=== PATIENT | male | born 1955 | race Hispanic/Latino ===

== ENCOUNTER 2018-11-20 09:12 | Observation (INO) | payer SELFPAY ==
--- NOTE | 2018-11-20 09:43 | RAD REPORT ---
EXAM DESCRIPTION: CT - CTHCSPWOC - 11/20/2018 9:29 am CLINICAL HISTORY: Trauma, head and neck injury. TRAUMA COMPARISON: No comparisons TECHNIQUE: Axial 5 mm thick images of the head were obtained. Axial 2 mm thick images of the cervical spine were obtained with sagittal and coronal reconstruction images generated and reviewed. All CT scans are performed using dose optimization technique as appropriate and may include automated exposure control or mA/KV adjustment according to patient size. FINDINGS: CT HEAD WITHOUT CONTRAST: No acute hemorrhage, hydrocephalus or extra-axial collection is identified.No areas of brain edema or midline shift. The paranasal sinuses and mastoids are clear.The calvarium is intact. Prominent posterior scalp jonathan augusto. CT CERVICAL SPINE WITHOUT CONTRAST: No fracture or subluxation.Mild cervical spondylosis.No prevertebral soft tissues swelling is identif ied. IMPRESSION: No acute intracranial or cervical spine findings.
[2018-11-20 10:04] LABS: Protime INR 0.97
[2018-11-20 10:20] LABS: Absolute Lymphocytes (CBC) 2.3 K/uL (0.7-4.9); Basophils % 0.7 % (0-1.3); Hematocrit 47.3 % (39.6-49.0); Lymphocytes % 22.1 % (15.3-44.8); RBC Red Blood Cell Count 4.96 M/uL (4.33-5.43)
--- NOTE | 2018-11-20 10:20 | ER ---
Nurse's Notes [facility] Name: Matt Reyes Age: 63 yrs Sex: Male : 1955 Arrival Date: 11/20/2018 Time: 09:15 Bed 4 Private MD: Diagnosis: Syncope and collapse Presentation: 11/20 09:16 Presenting complaint: EMS states: FALL OFF LADDER WITH OCCIPITAL INJURY AND +LOC, bp AMNESTIC TO EVENT. Care prior to arrival: IV initiated. 20 GA, in the left antecubital area. Mechanism of Injury: Fall from ladder. Trauma event details: Injury occurred in the [facility], Injury occurred: at home. Injury occurred: November 20, 2018 Injury occurred at: 08:45. 09:16 Acuity: YUNG 3 bp 09:16 Method Of Arrival: EMS: [facility] bp 12:03 Transition of care: patient was not received from another setting of care. Onset of bp symptoms is unknown. Risk Assessment: Do you want to hurt yourself or someone else? Patient reports no desire to harm self or others. Initial Sepsis Screen: Does the patient meet any 2 criteria? No. Patient's initial sepsis screen is negative. Does the patient have a suspected source of infection? No. Patient's initial sepsis screen is negative. Triage Assessment: 09:16 General: Appears in no apparent distress. comfortable, Behavior is appropriate for age. bp 09:16 Pain: Complains of pain in scalp. bp 09:16 EENT: No deficits noted. Neuro: Level of Consciousness is awake, alert, obeys commands, bp Oriented to person, place, time, situation, Appropriate for age. Cardiovascular: No deficits noted. Respiratory: No deficits noted. GI: No signs and/or symptoms were reported involving the gastrointestinal system. : No signs and/or symptoms were reported regarding the genitourinary system. Derm: No deficits noted. Musculoskeletal: No deficits noted. Trauma Activation: Consult Physician: ED Physician; Name: KAREN; Notified At: 09:16; Arrived At: 09:16 Physician: General Surgeon; Name: ; Notified At: 09:16; Arrived At: Physician: Radiology; Name: ; Notified At: 09:16; Arrived At: Physician: Respiratory; Name: ; Notified At: 09:16; Arrived At: Physician: Lab; Name: ; Notified At: 09:16; Arrived At: Historical: - Allergies: 09:22 No Known Allergies; ae4 - Home Meds: 09:22 None [Active]; ae4 - PMHx: 09:22 None; ae4 - PSHx: 09:22 None; ae4 - Immunization history: Last tetanus immunization: unknown. - Social history:: Smoking status: Patient uses tobacco products, smokes one-half pack cigarettes per day. - Ebola Screening: : No symptoms or risks identified at this time. - Family history:: not pertinent. - Hospitalizations: : No recent hospitalization is reported. Screenin:16 Abuse screen: Denies threats or abuse. Denies injuries from another. Tuberculosis bp screening: No symptoms or risk factors identified. 12:04 Nutritional screening: No deficits noted. Fall Risk None identified. bp Primary Survey: 09:16 NO uncontrolled hemorrhage observed. A: The patient is alert. Airway: patent. bp Breathing/Chest: Respiratory pattern: regular, Respiratory effort: spontaneous, unlabored, Breath sounds: clear, bilaterally. Circulation: Skin color: pink, Skin temperature: cool. Disability Alert. Exposure/Environment: All clothing and personal items were removed. Forensic evidence collection is not deemed to be indicated at this time. Items placed in patient belonging bag. There is no evidence of uncontrolled external bleeding. Obvious injury(ies) are noted at this time: OCCIPTAL HEMATOMA WITH ABRASION, LEFT SCAPULAR WELT A warming method has been applied: A warm blanket has been provided to the patient. 10:30 Reassessment Airway Airway Patent Breathing/Chest Respiratory pattern Regular bp Respiratory effort Spontaneous Unlabored. 12:02 Reassessment Breathing/Chest Respiratory pattern Regular Respiratory effort Spontaneous bp Unlabored. Secondary Survey: 09:16 HEENT: Head Other OCCIPITAL ABRASION WITH HEMATOMA Face No injury/deformity Eyes: No bp injury or deformity noted. Ears: clear Nose: clear. Gastrointestinal: No deficits noted. : No signs and/or symptoms were reported regarding the genitourinary system. Musculoskeletal: No deficits noted. Assessment: 09:16 General: Appears in no apparent distress. comfortable, obese, Behavior is calm, bp cooperative, appropriate for age. Pain: Complains of pain in scalp. Neuro: Level of Consciousness is awake, alert, obeys commands, Oriented to person, place, time, situation, Appropriate for age. EENT: No deficits noted. Cardiovascular: No deficits noted. Respiratory: No deficits noted. GI: No signs and/or symptoms were reported involving the gastrointestinal system. : No signs and/or symptoms were reported regarding the genitourinary system. Derm: Skin is diaphoretic, Skin is normal, Skin temperature is cool. Musculoskeletal: No deficits noted. Injury Description: Abrasion sustained to scalp. 09:48 Reassessment: PT RETURNED FROM RADIOLOGY. bp 10:00 Reassessment: Provider at bedside discussing plan of care. ae4 Vital Signs: 09:16 BP 136 / 96; Pulse 81; Resp 17; Temp 97.5; Pulse Ox 96% ; Weight 72.57 kg; bp 10:05 BP 135 / 94; Pulse 74; Resp 16; Pulse Ox 95% on R/A; ae4 10:05 Temp 97.8(O); ae4 11:00 BP 147 / 93; Pulse 69; Resp 16; Pulse Ox 97% ; bp 12:00 BP 138 / 90; Pulse 74; Resp 16; Pulse Ox 95% ; bp Martin Coma Score: 09:16 Eye Response: spontaneous(4). Verbal Response: oriented(5). Motor Response: obeys bp commands(6). Total: 15. Trauma Score (Adult): 09:16 Eye Response: spontaneous(1); Verbal Response: oriented(1); Motor Response: obeys bp commands(2); Systolic BP: > 89 mm Hg(4); Respiratory Rate: 10 to 29 per min(4); [place] Score: 15; Trauma Score: 12 ED Course: 09:15 Patient arrived in ED. aa5 09:15 Alfa Thomas, RN is Primary Nurse. bp 09:16 Chandana Solomon MD is Attending Physician. ma2 09:16 Patient has correct armband on for positive identification. Bed in low position. Call bp light in reach. Side rails up X2. 09:16 Patient maintains SpO2 saturation greater than 95% on room air. Thermoregulation: warm bp blanket given to patient. 09:16 Maintain EMS IV. Dressing intact. Good blood return noted. Site clean \T\ dry. Gauge \T\ bp site: 20 GAUGE LEFT AC. 09:18 Triage completed. bp 09:22 Arm band placed on right wrist. ae4 09:29 Head C Spine Mpr Wo Con In Process Unspecified. EDMS 09:37 CXR XRAY In Process Unspecified. EDMS 10:11 Ice applied to posterior head.. ae4 10:12 EKG done, by ED staff, reviewed by Chandana Solomon MD. jb1 10:19 Caroline Motta MD is Hospitalizing Provider. ma2 12:02 No provider procedures requiring assistance completed. Patient admitted, IV remains in bp place. Administered Medications: No medications were administered Intake: 09:16 PO: 0ml; Total: 0ml. bp Output: 09:16 Urine: 0ml; Total: 0ml. bp Outcome: 10:19 Decision to Hospitalize by Provider. ma2 12:02 Admitted to Tele accompanied by tech, family with patient, via wheelchair, room 215, bp with chart, Report called to JOHANNA PEACOCK 12:02 Condition: stable 12:02 Instructed on the need for admit. 12:03 Patient's length of stay in the Emergency Department was greater than 2 hours. bp Patient's length of stay was extended due to staffing issues within the emergency department. 12:22 Patient left the ED. bp Signatures: Dispatcher [employer] EDMS Adam Sepulveda jb1 Naz Trujillo, RN RN aa5 Alfa Thomas, RN RN bp Chandana Solomon MD MD ma2 Tony Carlson, RN RN ae4 Corrections: (The following items were deleted from the chart) 09:34 09:16 BP 136 / 96; Pulse 81bpm; Resp 17bpm; Pulse Ox 96%; Temp 97.5F; bp bp 09:50 09:16 Trauma Activation: Alert bp bp 12:03 12:02 Admitted to Tele accompanied by tech, family with patient, via wheelchair, room bp 215, with chart, bp
[2018-11-20 10:21] LABS: ALT/SGPT 58 U/L (12-78); AST/SGOT 46 U/L (15-37); Albumin 3.9 g/dL (3.4-5.0); Alkaline Phosphatase 65 U/L (45-117); BUN Blood Urea Nitrogen 14 mg/dL (7-18); Bicarbonate 27 mmol/L (21-32); Bilirubin Direct 0.1 mg/dL (0-0.2); Bilirubin Total 0.4 mg/dL (0.2-1.0); Glucose Level 145 mg/dL (74-106); NT PRO-BNP 18 pg/mL (<125); Potassium 3.9 mmol/L (3.5-5.1); Protein, Total 7.5 g/dL (6.4-8.2); Sodium Level 142 mmol/L (136-145); Troponin (Emerg Dept Use Only) < 0.02 ng/mL (0.0-0.045)
--- NOTE | 2018-11-20 10:21 | EDPHYS ---
Physician Documentation [facility] Name: Matt Reyes Age: 63 yrs Sex: Male : 1955 Arrival Date: 11/20/2018 Time: 09:15 Bed 4 Private MD: ED Physician Chandana Solomon HPI: 11/20 09:49 This 63 yrs old Male presents to ER via EMS with complaints of Fall Injury. ma2 09:49 Details of fall: The patient fell from an upright position. Onset: The symptoms/episode ma2 began/occurred gradually, 2 day(s) ago. Associated injuries: The patient sustained injury to the head. Severity of symptoms: At their worst the symptoms were moderate, in the emergency department the symptoms are unchanged. The patient has not experienced similar symptoms in the past. Historical: - Allergies: 09:22 No Known Allergies; ae4 - Home Meds: 09:22 None [Active]; ae4 - PMHx: 09:22 None; ae4 - PSHx: 09:22 None; ae4 - Immunization history: Last tetanus immunization: unknown. - Social history:: Smoking status: Patient uses tobacco products, smokes one-half pack cigarettes per day. - Ebola Screening: : No symptoms or risks identified at this time. - Family history:: not pertinent. - Hospitalizations: : No recent hospitalization is reported. ROS: 09:49 Constitutional: Negative for fever, chills, and weight loss. ma2 09:49 All other systems are negative. Exam: 09:49 Constitutional: This is a well developed, well nourished patient who is awake, alert, ma2 and in no acute distress. Head/Face: Normocephalic, atraumatic. ENT: Nares patent. No nasal discharge, no septal abnormalities noted. Tympanic membranes are normal and external auditory canals are clear. Oropharynx with no redness, swelling, or masses, exudates, or evidence of obstruction, uvula midline. Mucous membranes moist. Chest/axilla: Normal chest wall appearance and motion. Nontender with no deformity. No lesions are appreciated. Cardiovascular: Regular rate and rhythm with a normal S1 and S2. No gallops, murmurs, or rubs. Normal PMI, no JVD. No pulse deficits. Respiratory: Lungs have equal breath sounds bilaterally, clear to auscultation and percussion. No rales, rhonchi or wheezes noted. No increased work of breathing, no retractions or nasal flaring. Abdomen/GI: Soft, non-tender, with normal bowel sounds. No distension or tympany. No guarding or rebound. No evidence of tenderness throughout. Skin: Warm, dry with normal turgor. Normal color with no rashes, no lesions, and no evidence of cellulitis. MS/ Extremity: Pulses equal, no cyanosis. Neurovascular intact. Full, normal range of motion. Neuro: Awake and alert, GCS 15, oriented to person, place, time, and situation. Cranial nerves II-XII grossly intact. Motor strength 5/5 in all extremities. Sensory grossly intact. Cerebellar exam normal. Normal gait. Vital Signs: 09:16 BP 136 / 96; Pulse 81; Resp 17; Temp 97.5; Pulse Ox 96% ; Weight 72.57 kg; bp 10:05 BP 135 / 94; Pulse 74; Resp 16; Pulse Ox 95% on R/A; ae4 10:05 Temp 97.8(O); ae4 11:00 BP 147 / 93; Pulse 69; Resp 16; Pulse Ox 97% ; bp 12:00 BP 138 / 90; Pulse 74; Resp 16; Pulse Ox 95% ; bp Martin Coma Score: 09:16 Eye Response: spontaneous(4). Verbal Response: oriented(5). Motor Response: obeys bp commands(6). Total: 15. Trauma Score (Adult): 09:16 Eye Response: spontaneous(1); Verbal Response: oriented(1); Motor Response: obeys bp commands(2); Systolic BP: > 89 mm Hg(4); Respiratory Rate: 10 to 29 per min(4); [place] Score: 15; Trauma Score: 12 MDM: 09:16 Patient medically screened. ma2 09:49 Differential diagnosis: abrasion, closed head injury, contusion, multiple trauma, ma2 sprain, strain. 10:18 Data reviewed: vital signs. nh2 10:18 Counseling: I had a detailed discussion with the patient and/or guardian regarding: the [facility] historical points, exam findings, and any diagnostic results supporting the discharge/admit diagnosis, the presence of at least one elevated blood pressure reading (>120/80) during this emergency department visit, the need for further work-up and treatment in the hospital. 11/20 09:23 Order name: Basic Metabolic Panel; Complete Time: 10:24 ma2 11/20 09:23 Order name: CBC with Diff; Complete Time: 10:24 ma2 11/20 09:23 Order name: LFT's; Complete Time: 10:24 ma2 11/20 09:23 Order name: Magnesium; Complete Time: 10:24 ma2 11/20 09:23 Order name: NT PRO-BNP; Complete Time: 10:24 ma2 11/20 09:23 Order name: PT-INR; Complete Time: 10:24 ma2 11/20 09:18 Order name: CXR XRAY bp 11/20 09:23 Order name: Head C Spine Mpr Wo Con; Complete Time: 09:52 EDMS 11/20 09:23 Order name: Troponin (emerg Dept Use Only); Complete Time: 10:24 ma2 11/20 09:23 Order name: EKG; Complete Time: 09:26 ma2 11/20 10:51 Order name: Thyroid Stimulating Hormone EDUT 11/20 10:53 Order name: Carotid Artery Bilateral EDUT 11/20 09:23 Order name: Cardiac monitoring; Complete Time: 09:36 ma2 11/20 09:23 Order name: EKG - Nurse/Tech; Complete Time: 09:53 ma2 11/20 09:23 Order name: IV Saline Lock; Complete Time: 09:47 ma2 11/20 09:23 Order name: Labs collected and sent; Complete Time: 09:47 ma2 11/20 09:23 Order name: O2 Per Protocol; Complete Time: 09:35 ma2 11/20 09:23 Order name: O2 Sat Monitoring; Complete Time: 09:35 ma2 11/20 10:51 Order name: CONS Physician Consult EDUT Administered Medications: No medications were administered Disposition: 11/20/18 10:19 Hospitalization ordered by Caroline Motta for Observation. Preliminary diagnosis is Syncope and collapse. - Bed requested for Telemetry/MedSurg (observation). - Status is Observation. bp - Condition is Stable. - Problem is new. - Symptoms are unchanged. UTI on Admission? No Signatures: Dispatcher [employer] EDMS Naz Trujillo RN RN aa5 Alfa Thomas RN RN bp Chandana Solomon MD MD ma2 Tony Carlson RN RN ae4 Corrections: (The following items were deleted from the chart) 09: 09:17 C Spine Wo Con+CT.RAD.BRZ ordered. EDMS EDMS 09:23 09:17 Head Brain Wo Cont+CT.RAD.BRZ ordered. EDMS EDMS 11:10 10:19 Hospitalization Ordered by Caroline Motta MD for Observation. Preliminary aa5 diagnosis is Syncope and collapse. Bed requested for Telemetry/MedSurg (observation). Status is Observation. Condition is Stable. Problem is new. Symptoms are unchanged. UTI on Admission? No. ma2 12:22 11:10 11/20/2018 10:19 Hospitalization Ordered by Caroline Motta MD for Observation. bp Preliminary diagnosis is Syncope and collapse. Bed requested for Telemetry/MedSurg (observation). Status is Observation. Condition is Stable. Problem is new. Symptoms are unchanged. UTI on Admission? No. aa5
--- NOTE | 2018-11-20 10:51 | RAD REPORT ---
EXAM DESCRIPTION: RAD - Chest Single View - 11/20/2018 9:37 am CLINICAL HISTORY: FALL Chest pain. COMPARISON: No comparisons FINDINGS: Portable technique limits examination quality. The lungs are grossly clear. The heart is upper limit of normal in size. No displaced fractures. IMPRESSION: No acute intrathoracic process suspected.
--- NOTE | 2018-11-20 12:00 | P.HP ---
Certification for Inpatient Patient admitted to: Observation With expected LOS: <2 Midnights Patient will require the following post-hospital care: None Practitioner: I am a practitioner with admitting privileges, knowledge of patient current condition, hospital course, and medical plan of care. Services: Services provided to patient in accordance with Admission requirements found in Title 42 Section 412.3 of the Code of Federal Regulations Patient History Date of Service: 11/20/18 Primary Care Provider: Unknown Reason for admission: Fall History of Present Illness: This is a 63-year-old male with significant past medical history who presented to the ED after having a fall from an upright position while climbing up the ladder. Patient stated that he had loss of consciousness when he fell and also had couple of seconds of forgetfulness after the event. Patient does not remember whether he had a syncopal episode or whether he had a mechanical fall. Patient did sustained injury to his occipital area when he fell off a ladder. Patient stated that he has not had similar episodes in the past and this is the 1st time anything like this has ever happened to her. Patient does complain of having some neck and back pain after having a fall. Denies having any chest pain shortness of breath nausea vomiting abdominal pain or any other associated symptoms Review of Systems 10-point ROS is otherwise unremarkable Physical Examination - Physical Exam General: Alert, In no apparent distress HEENT: Other (Occipital scalp hematoma noted.) Neck: Supple, 2+ carotid pulse no bruit, No LAD, Without JVD or thyroid abnormality Respiratory: Clear to auscultation bilaterally, Normal air movement Cardiovascular: Regular rate/rhythm, Normal S1 S2 Gastrointestinal: Normal bowel sounds, No tenderness Musculoskeletal: No tenderness Integumentary: No rashes Neurological: Normal gait, Normal speech, Normal strength at 5/5 x4 extr, Normal tone, Normal affect Lymphatics: No axilla or inguinal lymphadenopathy - Studies Laboratory Data (last 24 hrs) 11/20/18 09:45: PT 11.5, INR 0.97 11/20/18 09:45: WBC 10.6, Hgb 16.5, Hct 47.3, Plt Count 199 11/20/18 09:45: Sodium 142, Potassium 3.9, BUN 14, Creatinine 1.04, Glucose 145 H, Magnesium 2.0, Total Bilirubin 0.4, AST 46 H, ALT 58, Alkaline Phosphatase 65 Assessment and Plan - Problems (Diagnosis) (1) Fall Current Visit: Yes Status: Acute Plan: Status post fall most likely mechanical fall -fall precautions given -PTOT consulted -if doing well anticipate discharge in next 24 hr Qualifiers: Encounter type: initial encounter Qualified Code(s): W19.XXXA - Unspecified fall, initial encounter (2) Syncope Current Visit: Yes Status: Acute Plan: Possible syncopal episode is patient does not remember whether he had a mechanical fall or not -head CT negative for any acute abnormality -will get carotid Dopplers here in the hospital -cardiology is consulted. Awaiting recommendations -most likely patient will be discharged home after he worked with physical therapy and carotid Dopplers are negative. Will need outpatient workup with echocardiogram and Holter monitor if needed Qualifiers: Syncope type: unspecified Qualified Code(s): R55 - Syncope and collapse (3) Hematoma of occipital surface of head Current Visit: Yes Status: Acute Plan: Hematoma of the septal surface of the head -stable at this time -head CTs WNL Qualifiers: Encounter type: initial encounter Qualified Code(s): S00.83XA - Contusion of other part of head, initial encounter Discharge Plan: Home Plan to discharge in: 48 Hours - Advance Directives Does patient have a Living Will: No Does patient have a Durable POA for Healthcare: No - Code Status/Comfort Care Code Status Assessed: Yes Critical Care: No
[2018-11-20 12:32] VITALS: O2SAT 95
[2018-11-20 13:37] VITALS: BMI 33.0
[2018-11-20] MEDS ORDERED: POTASSIUM CL SA 10 MEQ TAB PO ONE (16:00)
[2018-11-20] MEDS ORDERED: TRAMADOL HCL 50 MG TAB PO ONE (17:19)
[2018-11-21] MEDS ORDERED: TRAMADOL HCL 50 MG TAB PO PRN (04:51)
[2018-11-21 05:46] LABS: Urine Appearance CLEAR; Urine Bilirubin NEGATIVE (NEG); Urine Blood 2+ (NEG); Urine Color YELLOW; Urine Glucose NEGATIVE (NEG); Urine Protein NEGATIVE (NEG); Urine Urobilinogen 0.2 mg/dL (0.2-1.0)
[2018-11-21 05:49] LABS: Urine Microscopic Reflex ORDER UMIC
[2018-11-21 06:12] LABS: Urine Bacteria 20-50 /HPF (NONE SEEN); Urine Culture Reflex Order REFLEXED
[2018-11-21 06:22] LABS: Absolute Lymphocytes (CBC) 2.6 K/uL (0.7-4.9); Basophils % 0.4 % (0-1.3); Hematocrit 43.8 % (39.6-49.0); Lymphocytes % 21.1 % (15.3-44.8); MPV 9.3 fL (7.6-11.3); RBC Red Blood Cell Count 4.61 M/uL (4.33-5.43)
[2018-11-21 06:24] LABS: Albumin 3.5 g/dL (3.4-5.0); Bilirubin Total 0.7 mg/dL (0.2-1.0); Potassium 4.2 mmol/L (3.5-5.1); Protein, Total 6.6 g/dL (6.4-8.2)
--- NOTE | 2018-11-21 07:52 | RAD REPORT ---
EXAM DESCRIPTION: - CP - 11/20/2018 9:49 pm CLINICAL HISTORY: Syncope COMPARISON: None. TECHNIQUE: Real-time sonographic evaluation of both carotid systems was performed. Cisse scale and Do ppler interrogation were performed with waveform tracing bilaterally. FINDINGS: Normal high resistance waveforms are noted in both external carotid arteries. The common c arotid arteries and internal carotid arteries show normal low resistance waveforms. Soft plaquing changes are present in the proximal left ICA. No significant luminal narrowing. Peak sy stolic and end diastolic velocity values and the ICA/CCA ratios are in the non-hemodynamically signif icant range. Antegrade flow seen in both vertebral arteries. Velocity values and ratios were recorded and are retained in the patient's imaging records. IMPRESSION: Soft plaquing changes in the proximal left ICA do not cause significant luminal narrowin g. No other significant plaquing changes. No evidence of a hemodynamically significant stenosis.
[2018-11-21 11:15] VITALS: BP 132/83; TEMP 98.4
--- NOTE | 2018-11-21 11:55 | P.SSS ---
Patient History Date of Service: 11/21/18 Primary Care Provider: Unknown Reason for admission: Fall History of Present Illness: This is a 63-year-old male with significant past medical history who presented to the ED after having a fall from an upright position while climbing up the ladder. Patient stated that he had loss of consciousness when he fell and also had couple of seconds of forgetfulness after the event. Patient does not remember whether he had a syncopal episode or whether he had a mechanical fall. Patient did sustained injury to his occipital area when he fell off a ladder. Patient stated that he has not had similar episodes in the past and this is the 1st time anything like this has ever happened to her. Patient does complain of having some neck and back pain after having a fall. Denies having any chest pain shortness of breath nausea vomiting abdominal pain or any other associated symptoms Allergies No Known Allergies Allergy (Verified 11/20/18 12:28) Home Medications: NK [No Home Meds] 11/20/18 - Past Medical/Surgical History Has patient received pneumonia vaccine in the past: No Diabetic: No - Social History Smoking Status: Current every day smoker Alcohol use: Yes CD- Drugs: No Caffeine use: Yes Place of Residence: Home Review of Systems 10-point ROS is otherwise unremarkable Physical Examination - Vital Signs Temperature: 98.4 F Blood Pressure: 132/83 Pulse: 85 Respirations: 20 Pulse Ox (%): 95 - Physical Exam General: Alert, In no apparent distress HEENT: Atraumatic, PERRLA, Mucous membr. moist/pink, EOMI, Sclerae nonicteric Neck: Supple, 2+ carotid pulse no bruit, No LAD, Without JVD or thyroid abnormality Respiratory: Clear to auscultation bilaterally, Normal air movement Cardiovascular: Regular rate/rhythm, Normal S1 S2 Gastrointestinal: Normal bowel sounds, No tenderness Musculoskeletal: No tenderness Integumentary: No rashes Neurological: Normal gait, Normal speech, Normal strength at 5/5 x4 extr, Normal tone, Normal affect Lymphatics: No axilla or inguinal lymphadenopathy - Diagnosis (Problem(s)) (1) Fall Current Visit: Yes Status: Acute Plan: Status post fall most likely mechanical fall -fall precautions given -PTOT consulted patient did well with the Qualifiers: Encounter type: initial encounter Qualified Code(s): W19.XXXA - Unspecified fall, initial encounter (2) Syncope Current Visit: Yes Status: Acute Plan: Possible syncopal patient stated that he was more mechanical at this time -head CT negative for any acute abnormality -carotid Dopplers negative for any acute abnormality Patient cleared for discharge monitor 24 hr here in the hospital did well overall. Qualifiers: Syncope type: unspecified Qualified Code(s): R55 - Syncope and collapse (3) Hematoma of occipital surface of head Current Visit: Yes Status: Acute Plan: Hematoma of the septal surface of the head -stable at this time -head CTs WNL Qualifiers: Encounter type: initial encounter Qualified Code(s): S00.83XA - Contusion of other part of head, initial encounter - Disposition Disposition: ROUTINE DISCHARGE Condition: GOOD Diet: Regular Activity: Ad cruz
--- NOTE | 2018-11-21 13:21 | EKG ---
Test Date: 2018-11-20 Test Time: 10:01:23 Director Of Social Media Marketing: JAMIL MEASUREMENT RESULTS: Intervals: Rate: 78 IN: 156 QRSD: 88 QT: 384 QTc: 437 [place]: P: 43 IN: 156 QRS: 39 T: 23 INTERPRETIVE STATEMENTS: Normal sinus rhythm Septal infarct, age undetermined Abnormal ECG No previous ECG available for comparison Electronically Signed On 11-21-18 13:19:00 CDT by Gwyn Olvera
== END 2018-11-21 13:52 | disposition home or self-care (01) ==
LOC: ER 09:12 → ERHOLD 10:49 → 2ND 12:01
PROVIDERS: ADMIT Family Medicine; ATTEND Family Medicine
DX: R55 Syncope and collapse (principal); S00.83XA Contusion of other part of head, initial encounter; F17.200 Nicotine dependence, unspecified, uncomplicated; W19.XXXA Unspecified fall, initial encounter
CPT/HCPCS: 36415; 70450; 71045; 72125; 80048; 80053; 80076; 81003; 81015; 83735; 83880; 84443; 84484; 85025; 85610; 87086; 87088; 93005; 93880; 99285; G0378